=== PATIENT | male | born 1985 | race African-American/Black ===

== ENCOUNTER 2017-11-12 13:32 | Inpatient (IN) | payer OTHER ==
[2017-11-12] MEDS ORDERED: fentaNYL CITRATE 250 MCG/5 ML VIAL ONE (16:25)
[2017-11-12] MEDS ORDERED: ROCURONIUM BROMIDE 50 MG/5 ML VIAL ONE ×2 (16:25→17:17)
[2017-11-12] MEDS ORDERED: LIDOCAINE HCL/PF 2% SDV 5ML VIAL ONE (16:26)
[2017-11-12] MEDS ORDERED: MIDAZOLAM HCL 2 MG/2 ML SINGLE DOSE VIAL ONE ×2 (16:26)
[2017-11-12] MEDS ORDERED: PROPOFOL 20 ML ONE ×2 (16:26)
[2017-11-12] MEDS ORDERED: BUPIVACAINE HCL/PF 0.5% (5MG/ML) 10 ML VIAL ONE (16:32)
[2017-11-12] MEDS ORDERED: ceFAZolin SODIUM 1 GM VIAL IVPB ONE (17:05)
[2017-11-12] MEDS ORDERED: ceFAZolin SODIUM 1 GM VIAL ONE (17:07)
[2017-11-12] MEDS ORDERED: BUPIVACAINE HCL/PF 0.5% (5MG/ML) 10 ML VIAL IJ ONE (17:39)
[2017-11-12] MEDS ORDERED: DEXAMETHASONE SOD PHOSPHATE 4 MG/1 ML VIAL ONE (18:15)
[2017-11-12] MEDS ORDERED: GLYCOPYRROLATE 0.2 MG/1 ML VIAL ONE (18:28)
[2017-11-12] MEDS ORDERED: NEOSTIGMINE METHYLSULFATE 0.5 MG/ML - 10 ML MDV ONE (18:28)
[2017-11-12] MEDS ORDERED: ONDANSETRON 4 MG/2 ML VIAL IVPUSH PRN (18:33)
--- NOTE | 2017-11-12 18:45 | OP ---
Operative Note - Note: Operative Date: 11/12/17 Pre-Operative Diagnosis: Morbid Obesity Operation: Laparoscopic Vertical Sleeve Gastrectomy. Wedge biopsy of left lobe of liver. Diagnostic Laparoscopy Findings: Greater curve sleeve gastrectomy performed with #[address] Wedge biopsy performed on enlarged left lobe of liver Post-Operative Diagnosis: Same as Pre-op (Hepatomegaly) Surgeon: Tony Mesa Warehouse Examiner: Jose C Clancy Anesthesia: General Specimens Removed: Greater curve of stomach. Wedge biopsy left lobe of liver Estimated Blood Loss (mls): 30 Operative Report Dictated: Yes
--- NOTE | 2017-11-12 18:49 | SURG ---
Surgery Hospital Housekeeper Note Hospital Housekeeper: Jose C Clancy PA-C Date of Service: 11/12/17 Diagnosis: Morbid obesity due to excess calories Procedure: Laproscopic sleeve gastrectomy and liver biopsy I was present for the entirety of the operative procedure. For further detail, please refer to operative report.
[2017-11-12] MEDS ORDERED: PROMETHAZINE HCL 25 MG/1 ML VIAL IVPUSH PRN (18:52)
[2017-11-12] MEDS ORDERED: ACETAMINOPHEN 1000 MG/100 ML VIAL (NON FORMULARY) IVPB ONE (18:52)
[2017-11-12] MEDS ORDERED: ACETAMINOPHEN INJECTION 100 ML IVPB ONE (18:52)
[2017-11-12] MEDS ORDERED: PROMETHAZINE HCL 25 MG/1 ML VIAL ONE (18:53)
[2017-11-12] MEDS ORDERED: LACTATED RINGERS SOLUTION 1,000 ML IV SCH (19:00)
[2017-11-12] MEDS ORDERED: LABETALOL HCL 5 MG/1 ML (100MG/20 ML VIAL) IVPUSH ONE (19:15)
[2017-11-12] MEDS ORDERED: METOCLOPRAMIDE HCL INJECTION 10 MG/2 ML VIAL ONE (19:16)
[2017-11-12] MEDS: METOCLOPRAMIDE HCL INJECTION 10 MG/2 ML VIAL IVPUSH SCH (19:25)
[2017-11-12 19:57] LABS: HEMATOCRIT 39.3 % (35.4-49); HEMOGLOBIN 12.7 GM/dL (11.7-16.9); MCH 26.4 pg (25.7-33.7); MCHC 32.4 g/dl (32.0-35.9); MEAN CELL VOLUME 81.6 fl (80-96); MEAN PLT VOLUME 8.2 fl (7.5-11.1); PLATELET COUNT 315 K/MM3 (134-434); RBC 4.82 M/mm3 (4.00-5.60); RDW 13.2 % (11.9-15.9); WHITE BLOOD COUNT 11.5 K/mm3 (4.0-10.0)
[2017-11-12] MEDS ORDERED: hydrALAZINE HCL 20 MG/ML VIAL ONE (20:09)
[2017-11-12] MEDS ORDERED: hydrALAZINE HCL 20 MG/ML VIAL IVPUSH ONE ×2 (20:17→21:36)
[2017-11-12 20:18] LABS: ALBUMIN 3.7 g/dl (3.4-5.0); ALK PHOS 86 U/L (45-117); ANION GAP 9 (8-16); BILIRUBIN,TOTAL 0.5 mg/dL (0.2-1.0); BLOOD UREA NITROGEN 13 mg/dL (7-18); CALCIUM 8.4 mg/dL (8.5-10.1); CHLORIDE 105 mmol/L (98-107); CO2 27 mmol/L (21-32); GLUCOSE,RANDOM 153 mg/dL (74-106); POTASSIUM 3.7 mmol/L (3.5-5.1); SGOT/AST 52 U/L (15-37); SGPT/ALT 73 U/L (12-78); SODIUM 141 mmol/L (136-145); TOT PROT 7.6 g/dl (6.4-8.2)
[2017-11-12] MEDS: SODIUM CHLORIDE 1,000 ML IV SCH (21:00)
[2017-11-12] MEDS: ENOXAPARIN NA (PORCINE) 40 MG/0.4 ML DISP.SYRIN SQ SCH (22:36)
[2017-11-12] MEDS: FAMOTIDINE 20 MG/50 ML IVPB 20 MG/50 ML MG IVPB SCH (22:36)
[2017-11-13] MEDS: METOCLOPRAMIDE HCL INJECTION 10 MG/2 ML VIAL IVPUSH SCH ×4 (01:09→17:54)
[2017-11-13] MEDS ORDERED: LABETALOL HCL 5 MG/1 ML (100MG/20 ML VIAL) IVPUSH ONE (01:15)
[2017-11-13 07:46] LABS: HEMATOCRIT 40.5 % (35.4-49); HEMOGLOBIN 13.6 GM/dL (11.7-16.9); MCH 27.4 pg (25.7-33.7); MCHC 33.7 g/dl (32.0-35.9); MEAN CELL VOLUME 81.1 fl (80-96); MEAN PLT VOLUME 8.6 fl (7.5-11.1); PLATELET COUNT 355 K/MM3 (134-434); RBC 4.99 M/mm3 (4.00-5.60); RDW 13.2 % (11.9-15.9); WHITE BLOOD COUNT 10.3 K/mm3 (4.0-10.0)
[2017-11-13 07:57] LABS: ALK PHOS 90 U/L (45-117); ANION GAP 9 (8-16); BILIRUBIN,TOTAL 0.6 mg/dL (0.2-1.0); BLOOD UREA NITROGEN 13 mg/dL (7-18); CALCIUM 9.2 mg/dL (8.5-10.1); CHLORIDE 101 mmol/L (98-107); CO2 26 mmol/L (21-32); GLUCOSE,RANDOM 128 mg/dL (74-106); POTASSIUM 4.2 mmol/L (3.5-5.1); SGOT/AST 53 U/L (15-37); SGPT/ALT 78 U/L (12-78); SODIUM 136 mmol/L (136-145); TOT PROT 8.4 g/dl (6.4-8.2)
[2017-11-13] MEDS: FAMOTIDINE 20 MG/50 ML IVPB 20 MG/50 ML MG IVPB SCH ×2 (09:20→21:58)
[2017-11-13] MEDS: ENOXAPARIN NA (PORCINE) 40 MG/0.4 ML DISP.SYRIN SQ SCH ×2 (09:20→21:58)
--- NOTE | 2017-11-13 11:11 | OP ---
DATE OF OPERATION: 11/12/2017 PREOPERATIVE DIAGNOSIS: Morbid obesity. POSTOPERATIVE DIAGNOSIS: 1. Morbid obesity. 2. Hepatomegaly. PROCEDURE PERFORMED: 1. Laparoscopic vertical sleeve gastrectomy. 2. Wedge biopsy of the left lobe of the liver. 3. Diagnostic laparoscopy. OPERATING SURGEON: Tony Mesa MD CERTIFIED RETINAL ANGIOGRAPHER: OSWALDO Bravo ANESTHESIA: General. EXPECTED BLOOD LOSS: 30 mL. OPERATIVE PROCEDURE: The patient was brought into the operating room, placed on the OR table in the supine position. All precautions were taken initially including padding for the back and the feet, and Venodyne boots were placed on both lower extremities. At that point, the abdomen was prepped and draped in the usual manner. A Veress needle was placed in the left upper quadrant, and a pneumoperitoneum was established. A No. 12 bladeless trocar was placed in the left upper quadrant. Through that trocar, a laparoscopic camera was placed. Under direct vision, a No. 15 bladeless trocar was placed in the midline in a supraumbilical position followed by a No. 5 bladeless trocar below the right costal margin, and No. 5 bladeless trocar below the left costal margin. A Yennifer Liver Retractor was then placed in the epigastrium to retract the left lobe of the liver. The left lobe was noted to be extremely enlarged, and it was decided that a biopsy would be performed on the undersurface of the liver. Using the LigaSure device, a wedge triangular shape was dissected off of the edge of the left lobe and sent off the field as specimen to Pathology. The parenchyma of the liver, any bleeding was easily controlled with the LigaSure. At this juncture, Anesthesia placed the patient at 20-degree reverse Trendelenburg position. The pylorus was noted on the distal stomach and 6 cm were measured proximally from there. Here, the operating surgeon lifted the stomach toward the anterior abdominal wall as the tiler's assistant surgeon retracted the gastrocolic ligament inferiorly. The LigaSure was then used to dissect the gastrocolic ligament and the short gastric vessels off the greater curve of the stomach. This continued in a superior and vertical direction until the final short gastric vessel between the superior pole, spleen, and proximal fundus was divided. At this juncture, Anesthesia advanced a No. 40 bougie along the lesser curve where it was held by the operating surgeon. Using the bougie as a guide, a series of komal was performed, the first two being black-load komal, 6 cm in length, along the bougie. This was followed by a series of purple-load komal also 6 cm in length and also along the bougie until the final staple was fired in the left upper quadrant, and the greater curve was now completely detached from the lesser curve. It should be noted that prior to firing staple, both the anterior and posterior joseph were checked that they were equal, and in the area of the esophagogastric junction, approximately 1 to 1.5 cm serosa remained on the anterior and posterior surfaces of the stomach. At this juncture, saline was placed around the staple line, and Anesthesia inflated the Bougie, which showed the entire lesser curve was distended. No signs of obstruction and no signs leaks were noted. At this juncture, the greater curve was removed with a No. 15 trocar site and handed off the field as specimen to Pathology. Under direct vision, the No. 15 trocar site was closed with endo-closure device to prevent internal hernia event bleeding. Under direct vision, all trocars removed and the pneumoperitoneum released. All trocar sites then received 0.25% Marcaine, were closed with 4-0 Biosyn in subcuticular fashion. Dressings were applied. Patient awoke from anesthesia and transferred out of the operating room to the recovery room in stable condition. Brad [id number]
--- NOTE | 2017-11-13 11:55 | PN ---
Progress Note, Physician Chief Complaint: POD #1 S/P SLEVE GASTRECTOMY AWAKE ALERT DENIES SEVERE PAIN NO FEVERS URINATED TODAY HAS NOT PASSED GAS - Current Medication List Current Medications: Active Medications Enoxaparin Sodium (Lovenox -) 40 mg SQ BID [facility] Last Admin: 11/13/17 09:20 Dose: 40 mg Fentanyl (Sublimaze Injection -) 50 mcg IVPUSH [id number] PRN PRN Reason: PAIN-PACU ORDER X 4 DOSES ONLY Last Admin: 11/12/17 20:05 Dose: 50 mcg Famotidine/Sodium Chloride (Pepcid 20 Mg Premixed Ivpb -) 20 mg in 50 mls @ 100 mls/hr IVPB BID [facility] Last Admin: 11/13/17 09:20 Dose: 100 mls/hr Sodium Chloride (Normal Saline -) 1,000 mls @ 150 mls/hr IV ASDIR [facility] Last Admin: 11/12/17 21:00 Dose: 0 mls Lactated Ringer's (Lactated Ringers Solution) 1,000 mls @ 75 mls/hr IV ASDIR [facility] Last Admin: 11/12/17 22:34 Dose: Not Given Metoclopramide HCl (Reglan Injection -) 10 mg IVPUSH Q6H [facility] Last Admin: 11/13/17 05:49 Dose: 10 mg Ondansetron HCl (Zofran Injection) 4 mg IVPUSH Q4H PRN PRN Reason: NAUSEA AND/OR VOMITING Oxycodone HCl (Roxicodone -) 5 mg PO Q4H PRN PRN Reason: PAIN LEVEL 1-5 Promethazine HCl (Phenergan Injection -) 12.5 mg IVPUSH Q6H PRN PRN Reason: NAUSEA-FOR RESCUE AFTER 15 MIN Last Admin: 11/12/17 18:56 Dose: 12.5 mg - Objective Vital Signs: Vital Signs Temperature 97.9 F 11/13/17 10:00 Pulse Rate 99 H 11/13/17 10:00 Respiratory Rate 18 11/13/17 10:00 Blood Pressure 141/89 11/13/17 10:00 O2 Sat by Pulse Oximetry (%) 95 11/13/17 09:00 Constitutional: Yes: No Distress Eyes: Yes: WNL HENT: Yes: WNL Neck: Yes: WNL Cardiovascular: Yes: WNL Respiratory: Yes: WNL Gastrointestinal: Yes: WNL, Tenderness Genitourinary: Yes: WNL Musculoskeletal: Yes: WNL Extremities: Yes: WNL Edema: No Peripheral Pulses WNL: Yes Integumentary: Yes: WNL Wound/Incision: Yes: Clean/Dry Neurological: Yes: WNL ...Motor Strength: WNL Psychiatric: Yes: WNL Labs: CBC, BMP 11/13/17 06:00 11/13/17 06:00 Assessment/Plan MONITOR LABS OOB TO CHAIR START BARIATRIC STAGE [address] BONNER DVT PROPHYLAXIS
[2017-11-13] MEDS: SODIUM CHLORIDE 1,000 ML IV SCH (13:04)
--- NOTE | 2017-11-13 14:59 | PN ---
Progress Note (short form) - Note Progress Note: POD#1 Afebrile; P-82-99 BP-140/90 now (was 180-200 systolic during the evening, trated with Hydralazine , labetolol) Pt tolerating PO clear liquids- 2-3 oz TID plus sips of water Abd- incisions clean, dry WBC-10.3 (slightly decreased) H/H-13.6/40.5 (no change) UGI_ no leak, no obstruction contrast flows freely into SB P- Begin clear liquids- 2 oz PO TID OOB-ambulate Cont DVT prophylaxis (Lovenox, SCD's) Cont Incentive Spirometer
[2017-11-13] MEDS ORDERED: amLODIPine BESYLATE 5 MG TABLET (FP) PO ONE (15:15)
[2017-11-13] MEDS: SODIUM CHLORIDE 0.45% 1,000 ML IV SCH (17:39)
--- NOTE | 2017-11-13 20:21 | PN ---
Progress Note, Physician Chief Complaint: Pt. has hypertension before surgery that went up after surgery in the PACU and was treated with labetalol and hydralazine. Lower for a while today but now back up. - Current Medication List Current Medications: Active Medications Enoxaparin Sodium (Lovenox -) 40 mg SQ BID [facility] Last Admin: 11/13/17 09:20 Dose: 40 mg Fentanyl (Sublimaze Injection -) 50 mcg IVPUSH [id number] PRN PRN Reason: PAIN-PACU ORDER X 4 DOSES ONLY Last Admin: 11/12/17 20:05 Dose: 50 mcg Famotidine/Sodium Chloride (Pepcid 20 Mg Premixed Ivpb -) 20 mg in 50 mls @ 100 mls/hr IVPB BID [facility] Last Admin: 11/13/17 09:20 Dose: 100 mls/hr Sodium Chloride (1/2 Normal Saline) 1,000 mls @ 42 mls/hr IV ASDIR [facility] Last Admin: 11/13/17 17:39 Dose: 42 mls/hr Metoclopramide HCl (Reglan Injection -) 10 mg IVPUSH Q6H [facility] Last Admin: 11/13/17 17:54 Dose: 10 mg Ondansetron HCl (Zofran Injection) 4 mg IVPUSH Q4H PRN PRN Reason: NAUSEA AND/OR VOMITING Oxycodone HCl (Roxicodone -) 5 mg PO Q4H PRN PRN Reason: PAIN LEVEL 1-5 Promethazine HCl (Phenergan Injection -) 12.5 mg IVPUSH Q6H PRN PRN Reason: NAUSEA-FOR RESCUE AFTER 15 MIN Last Admin: 11/12/17 18:56 Dose: 12.5 mg - Objective Vital Signs: Vital Signs Temperature 99.6 F 11/13/17 17:00 Pulse Rate 110 H 11/13/17 17:00 Respiratory Rate 20 11/13/17 17:00 Blood Pressure 191/82 11/13/17 17:00 O2 Sat by Pulse Oximetry (%) 95 11/13/17 09:00 Constitutional: Yes: Well Nourished, No Distress, Calm Neurological: Yes: WNL, Alert, Oriented Labs: CBC, BMP 11/13/17 06:00 11/13/17 06:00 Assessment/Plan POD#1 s/p Laproscopic Gastric Sleeve under GA. Hypertensive. Needs primary care to start on antihypertensives until BP is better controlled with weight loss.
[2017-11-13] MEDS: oxyCODONE HCL 5 MG TABLET PO PRN (22:07)
[2017-11-14] MEDS: METOCLOPRAMIDE HCL INJECTION 10 MG/2 ML VIAL IVPUSH SCH ×4 (00:47→17:52)
[2017-11-14] MEDS: oxyCODONE HCL 5 MG TABLET PO PRN ×3 (03:54→21:49)
[2017-11-14] MEDS: ENOXAPARIN NA (PORCINE) 40 MG/0.4 ML DISP.SYRIN SQ SCH ×2 (09:23→21:47)
[2017-11-14] MEDS: FAMOTIDINE 20 MG/50 ML IVPB 20 MG/50 ML MG IVPB SCH (09:24)
[2017-11-14] MEDS: HYDROCHLOROTHIAZIDE 12.5 MG CAPSULE (FP) PO SCH (09:24)
[2017-11-14] MEDS: amLODIPine BESYLATE 10 MG TABLET (FP) PO SCH (09:24)
--- NOTE | 2017-11-14 10:35 | PN ---
Progress Note, Physician Chief Complaint: AWAKE ALERDENIES CHEST PAIN OR SOB BP STILL ELEVATED - Current Medication List Current Medications: Active Medications Amlodipine Besylate (Norvasc -) 10 mg PO DAILY [facility] Last Admin: 11/14/17 09:24 Dose: 10 mg Enoxaparin Sodium (Lovenox -) 40 mg SQ BID [facility] Last Admin: 11/14/17 09:23 Dose: 40 mg Fentanyl (Sublimaze Injection -) 50 mcg IVPUSH [id number] PRN PRN Reason: PAIN-PACU ORDER X 4 DOSES ONLY Last Admin: 11/12/17 20:05 Dose: 50 mcg Hydrochlorothiazide (Hctz -) 12.5 mg PO DAILY [facility] Last Admin: 11/14/17 09:24 Dose: 12.5 mg Famotidine/Sodium Chloride (Pepcid 20 Mg Premixed Ivpb -) 20 mg in 50 mls @ 100 mls/hr IVPB BID [facility] Last Admin: 11/14/17 09:24 Dose: 100 mls/hr Sodium Chloride (1/2 Normal Saline) 1,000 mls @ 42 mls/hr IV ASDIR [facility] Last Admin: 11/13/17 17:39 Dose: 42 mls/hr Metoclopramide HCl (Reglan Injection -) 10 mg IVPUSH Q6H [facility] Last Admin: 11/14/17 06:20 Dose: 10 mg Ondansetron HCl (Zofran Injection) 4 mg IVPUSH Q4H PRN PRN Reason: NAUSEA AND/OR VOMITING Oxycodone HCl (Roxicodone -) 5 mg PO Q4H PRN PRN Reason: PAIN LEVEL 1-5 Last Admin: 11/14/17 03:54 Dose: 5 mg Promethazine HCl (Phenergan Injection -) 12.5 mg IVPUSH Q6H PRN PRN Reason: NAUSEA-FOR RESCUE AFTER 15 MIN Last Admin: 11/12/17 18:56 Dose: 12.5 mg - Objective Vital Signs: Vital Signs Temperature 99 F 11/14/17 05:00 Pulse Rate 106 H 11/13/17 22:00 Respiratory Rate 20 11/14/17 09:00 Blood Pressure 158/104 11/14/17 09:00 O2 Sat by Pulse Oximetry (%) 95 11/13/17 21:00 Constitutional: Yes: No Distress Eyes: Yes: WNL HENT: Yes: WNL Neck: Yes: WNL Cardiovascular: Yes: WNL Respiratory: Yes: WNL Gastrointestinal: Yes: Tenderness Genitourinary: Yes: WNL Musculoskeletal: Yes: WNL Extremities: Yes: WNL Edema: No Peripheral Pulses WNL: Yes Integumentary: Yes: WNL Wound/Incision: Yes: Clean/Dry Neurological: Yes: WNL ...Motor Strength: WNL Psychiatric: Yes: WNL Labs: CBC, BMP 11/13/17 06:00 11/13/17 06:00 Problem List - Problems (2) Hypertension Code(s): I10 - ESSENTIAL (PRIMARY) HYPERTENSION Assessment/Plan STARTED AMLODIPINE 10MG DAILY HCTZ 12.5MG DAILY MONITOR UNTIL THE AFTERNOON USE BARIATRIC BP CUFF PASSING GAS NO FEVERS VOIDING URINE NO RETENTION IF BP IMPROVED CAN GO HOME TODAY IF BP BETTER
--- NOTE | 2017-11-14 12:57 | PN ---
Progress Note (short form) - Note Progress Note: POD#2 Afebrile BP-140-170/88-104 P-98-108 Pt doing well Tolerating PO clear liquids- 3 oz PO TID No N/V Ambulating well using incentive spirometer P/E- all trocar sites clean, dry P- PO clear liquids- 3 OZ PO TID Cont DVT prophylaxis Cont Lovenox, SCD's May be D/C if BP improved
[2017-11-14] MEDS: SODIUM CHLORIDE 0.45% 1,000 ML IV SCH (15:52)
[2017-11-14] MEDS: metoPROLOL SUCCINATE 25 MG TAB.SR.24H (FP) PO SCH ×2 (16:47→21:48)
[2017-11-14] MEDS: RANITIDINE HCL 150 MG TABLET (FP) PO SCH (21:48)
[2017-11-15 06:17] VITALS: PULSE 100; TEMP 98.8
[2017-11-15 09:02] VITALS: BP 150/68
[2017-11-15] MEDS: HYDROCHLOROTHIAZIDE 12.5 MG CAPSULE (FP) PO SCH (09:16)
[2017-11-15] MEDS: ENOXAPARIN NA (PORCINE) 40 MG/0.4 ML DISP.SYRIN SQ SCH (09:16)
[2017-11-15] MEDS: amLODIPine BESYLATE 10 MG TABLET (FP) PO SCH (09:16)
[2017-11-15] MEDS: RANITIDINE HCL 150 MG TABLET (FP) PO SCH (09:16)
[2017-11-15] MEDS: metoPROLOL SUCCINATE 25 MG TAB.SR.24H (FP) PO SCH (09:16)
--- NOTE | 2017-11-15 11:09 | PN ---
Progress Note, Physician Chief Complaint: patient seen and examined feeling better wants to go home cardiology consulted for elevated BP and tachycardia - Current Medication List Current Medications: Active Medications Amlodipine Besylate (Norvasc -) 10 mg PO DAILY [facility] Last Admin: 11/15/17 09:16 Dose: 10 mg Enoxaparin Sodium (Lovenox -) 40 mg SQ BID [facility] Last Admin: 11/15/17 09:16 Dose: 40 mg Fentanyl (Sublimaze Injection -) 50 mcg IVPUSH [id number] PRN PRN Reason: PAIN-PACU ORDER X 4 DOSES ONLY Last Admin: 11/12/17 20:05 Dose: 50 mcg Hydrochlorothiazide (Hctz -) 12.5 mg PO DAILY [facility] Last Admin: 11/15/17 09:16 Dose: 12.5 mg Sodium Chloride (1/2 Normal Saline) 1,000 mls @ 42 mls/hr IV ASDIR [facility] Last Admin: 11/14/17 15:52 Dose: 42 mls/hr Metoprolol Succinate (Toprol Xl -) 25 mg PO BID [facility] Last Admin: 11/15/17 09:16 Dose: 25 mg Ondansetron HCl (Zofran Injection) 4 mg IVPUSH Q4H PRN PRN Reason: NAUSEA AND/OR VOMITING Oxycodone HCl (Roxicodone -) 5 mg PO Q4H PRN PRN Reason: PAIN LEVEL 1-5 Last Admin: 11/14/17 21:49 Dose: 5 mg Promethazine HCl (Phenergan Injection -) 12.5 mg IVPUSH Q6H PRN PRN Reason: NAUSEA-FOR RESCUE AFTER 15 MIN Last Admin: 11/12/17 18:56 Dose: 12.5 mg Ranitidine HCl (Zantac -) 150 mg PO BID [facility] Last Admin: 11/15/17 09:16 Dose: 150 mg - Objective Vital Signs: Vital Signs Temperature 98.8 F 11/15/17 06:00 Pulse Rate 100 H 11/15/17 09:01 Respiratory Rate 18 11/15/17 08:00 Blood Pressure 150/68 11/15/17 09:01 O2 Sat by Pulse Oximetry (%) 96 11/15/17 08:00 Constitutional: Yes: Calm Cardiovascular: Yes: Regular Rate and Rhythm, S1, S2 Respiratory: Yes: CTA Bilaterally Gastrointestinal: Yes: Normal Bowel Sounds, Soft, Other (3 bandages) Edema: No Neurological: Yes: Alert, Oriented Labs: CBC, BMP 11/13/17 06:00 11/13/17 06:00 Problem List - Problems (1) Hypertension Assessment/Plan: norvasc metoprolol bid and hctz cardiology consulted Code(s): I10 - ESSENTIAL (PRIMARY) HYPERTENSION (2) S/P gastrectomy Assessment/Plan: on clear liquid diet surgery on board
--- NOTE | 2017-11-15 12:08 | CON.CARD ---
Consult Consult Specialty:: Cardiology Referred by:: Dr. Lewis Reason for Consultation:: Hypertension, nonspecific ST abnormality on EKG - History of Present Illness Chief Complaint: high blood pressure, s/p sleeve gastrectomy History of Present Illness: Patient had sleeve gastrectomy on 11/12, postoperatively had elevated BP as high as 200/105 and was tachycardic. Also noted to have nonspecific EKG changes on EKG done today. Patient is feeling well. Denies chest pain, dyspnea, or other complaint. He says he has minimal post operative pain. No history of HTN but per patient has had higher BP at some clinic visits in the past, was not on medications prior. Has been started during this admission on metoprolol, HCTZ and amlodipine with improvement in BP. - History Source History Provided By: Patient Limitations to Obtaining History: No Limitations - Past Medical History Cardio/Vascular: No: AFIB, Aneurysm, Aortic Insufficiency, Aortic Stenosis, CAD , CHF, Deep Vein Thrombosis, HTN, Hyperlipdemia, [place], Mitral Insufficiency, Mitral Stenosis, Murmur, Pulmonary Hypertension, Other - Past Surgical History Past Surgical History: Yes: Bariatric Surgery - Alcohol/Substance Use Hx Alcohol Use: No (rare) - Smoking History Smoking history: Never smoked Aproximately how many cigarettes per day: 0 Home Medications - Allergies Allergies/Adverse Reactions: Allergies Allergy/AdvReac Type Severity Reaction Status Date / Time egg yolk [Egg Yolk] Allergy Mild Hives Verified 11/10/17 14:06 No Known Drug Allergies Allergy Mild Hives Verified 11/10/17 14:06 CITRUS Allergy Mild TONGUE Uncoded 11/10/17 14:06 SORES WALNUTS Allergy Uncoded 11/10/17 14:06 - Home Medications Home Medications: Ambulatory Orders Famotidine [Pepcid] 20 mg PO BID #60 tablet 11/12/17 Oxycodone HCl/Acetaminophen [Percocet 5-325 mg Tablet] 1 tab PO Q6H PRN #20 tablet MDD 4 11/12/17 Review of Systems - Review of Systems Constitutional: denies: No Symptoms, Chills, Diaphoresis, Fever, Lethargy, Loss of Appetite, Malaise, Night Sweats, Unintentional Wgt. Loss, Weakness, Other Eyes: denies: No Symptoms, Blind Spots, Blurred Vision, Double Vision, Eye Pain , Floaters, Photophobia, Recent Change in Vision, Other HENT: denies: No Symptoms, Difficult Swallowing, Ear Discharge, Ear Pain, Epistaxis, Gingival Bleeding, Hearing Loss, Mouth Swelling, Nasal Congestion, Ocular Prosthesis, Throat Pain, Toothache, Ringing in Ears, Other Neck: denies: No Symptoms, Decreased ROM, Lumps, Pain on Movement, Stiffness, Swollen Glands, Tenderness, Other Cardiovascular: denies: No Symptoms, Chest Pain, Edema, Palpitations, Shortness of Breath, Other Respiratory: denies: No Symptoms, Cough, Exercise Intolerance, Hemoptysis, Orthopnea, PND, Snoring, SOB, SOB on Exertion, Wheezing, Other Gastrointestinal: reports: Abdominal Pain (mild, post surgery) Genitourinary: denies: No Symptoms, Burning, Discharge, Dysuria, Flank Pain, Frequency, Hematuria, Incontinence, Lesions, Menses, Pain, Testicular Mass, Testicular Pain, Testicular Swelling, Urgency, Vaginal Bleeding, Other Musculoskeletal: denies: No Symptoms, Back Pain, Crepitus, Decreased ROM, Extremity Pain, Joint Pain, Joint Swelling, Muscle Pain, Muscle Cramps, Muscle Weakness, Other Integumentary: denies: No Symptoms, Blister, Bruising, Change in Color, Eczema, Erythema, Incision, Lesions, Lump, Pallor, Pruritis, Rash, Wound, Other Neurological: denies: No Symptoms, Change in LOC, Change in Speech, Confusion, Dizziness, Headache, Incoordination, Numbness, Parasthesia, Pre-Existing Deficit , Seizure, Syncope, Tremors, Unsteady Gait, Weakness, Other Hematology/Lymphatic: denies: No Symptoms, Easily Bruised, Excessive Bleeding, Swollen Glands, Other Vital Signs: Vital Signs Temperature 98.8 F 11/15/17 06:00 Pulse Rate 100 H 11/15/17 09:01 Respiratory Rate 18 11/15/17 08:00 Blood Pressure 150/68 11/15/17 09:01 O2 Sat by Pulse Oximetry (%) 96 11/15/17 08:00 Constitutional: Yes: Well Nourished, No Distress, Calm Eyes: Yes: WNL, Conjunctiva Clear, EOM Intact HENT: Yes: WNL, Atraumatic, Normocephalic Neck: Yes: WNL, Supple, Trachea Midline Respiratory: Yes: WNL, Regular, CTA Bilaterally Gastrointestinal: Yes: WNL, Normal Bowel Sounds Cardiovascular: Yes: WNL, Regular Rate and Rhythm Heart Sounds: Yes: S1, S2 Musculoskeletal: Yes: WNL Extremities: Yes: WNL Edema: No - Other Data Labs, Other Data: CBC, BMP 11/13/17 06:00 11/13/17 06:00 11/14/17 Sinus rhythm with sinus arrhythmia, nonspecific ST changes, no ischemic changes. Stable compared to prior EKG from 08/26/17 Problem List - Problems (1) Hypertension Assessment/Plan: Improving with current medications started in the last two days Continue metoprolol, amlodipine and HCTZ at current doses Follow up as an outpatient for continued BP monitoring Code(s): I10 - ESSENTIAL (PRIMARY) HYPERTENSION (2) EKG abnormalities Assessment/Plan: Stable compared to preop EKG from 08/2017 Patient is asymptomatic No further work up at this point Code(s): R94.31 - ABNORMAL ELECTROCARDIOGRAM [ECG] [EKG]
[2017-11-15 12:11] VITALS: BMI 58.1
--- NOTE | 2017-11-15 13:19 | EKG ---
Test Reason : Blood Pressure : / mmHG Vent. Rate : 088 BPM Atrial Rate : 088 BPM P-R Int : 160 ms QRS Dur : 078 ms QT Int : 350 ms P-R-T Axes : 070 015 -03 degrees QTc Int : 423 ms NORMAL SINUS RHYTHM WITH SINUS ARRHYTHMIA NONSPECIFIC ST AND T WAVE ABNORMALITY ABNORMAL ECG WHEN COMPARED WITH ECG OF 26-AUG-2017 08:42, NO SIGNIFICANT CHANGE WAS FOUND Confirmed by DREW GROSS MD ([id number]) on 11/15/2017 1:19:19 PM Referred By: Tony Mesa Confirmed By:DREW GROSS MD
--- NOTE | 2017-11-15 14:09 | DS ---
Physical Examination Vital Signs: Vital Signs Temperature 98.8 F 11/15/17 06:00 Pulse Rate 100 H 11/15/17 09:01 Respiratory Rate 18 11/15/17 08:00 Blood Pressure 150/68 11/15/17 09:01 O2 Sat by Pulse Oximetry (%) 96 11/15/17 08:00 Constitutional: Yes: No Distress Eyes: Yes: WNL HENT: Yes: WNL Neck: Yes: WNL Cardiovascular: Yes: WNL Respiratory: Yes: Edwin-Duran Gastrointestinal: Yes: WNL Musculoskeletal: Yes: Muscle Weakness Extremities: Yes: WNL Edema: No Peripheral Pulses WNL: Yes Integumentary: Yes: WNL Wound/Incision: Yes: Clean/Dry Neurological: Yes: WNL ...Motor Strength: WNL Psychiatric: Yes: WNL Labs: CBC, BMP 11/13/17 06:00 11/13/17 06:00 Discharge Summary Reason For Visit: MORBID OBESITY Current Active Problems EKG abnormalities (Acute) Hypertension (Acute) S/P gastrectomy (Acute) S/P gastrectomy (Acute) Hospital Course: SLEEVE GASTRECTOMY, MALIGNANT HTN TREATED, Condition: Good - Instructions Diet, Activity, Other Instructions: PO clear liquids- 3 oz PO 4-5 times per day May have 1 cup of water/ice chips Q2H May shower beginning 11/15/2017 No lifting over 30 pounds for 3 weeks F/U with Dr Mesa on 11/18/[address] ALEXANDER THIS WEEK FOR BP CHECK Disposition: HOME - Home Medications Comprehensive Discharge Medication List: Ambulatory Orders Famotidine [Pepcid] 20 mg PO BID #60 tablet 11/12/17 Oxycodone HCl/Acetaminophen [Percocet 5-325 mg Tablet] 1 tab PO Q6H PRN #20 tablet MDD 4 11/12/17 Amlodipine Besylate [Norvasc -] 10 mg PO DAILY #30 tablet 11/15/17 Amlodipine Besylate [Norvasc -] 10 mg PO DAILY #30 tablet 11/15/17 Hydrochlorothiazide [Hctz -] 12.5 mg PO DAILY #30 cap 11/15/17 Hydrochlorothiazide [Hctz -] 12.5 mg PO DAILY #30 cap 11/15/17 Metoprolol Succinate [Toprol XL -] 25 mg PO BID #60 tab.sr.24h 11/15/17 Metoprolol Succinate [Toprol XL -] 25 mg PO BID #60 tab.sr.24h 11/15/17 Ranitidine [Zantac -] 150 mg PO BID #60 tablet 11/15/17
== END 2017-11-15 14:00 | disposition home or self-care (01) | DRG 621 ==
LOC: JSAMEDAYSX 13:32 → EDSTATUS 14:00 → J4W 21:20
PROVIDERS: ADMIT Surgery; ATTEND Surgery
PROC: 0WJP4ZZ Inspection of Gastrointestinal Tract, Percutaneous Endoscopic Approach (ICD-10-PCS; 2017-11-12)
PROC: 0DB64Z3 Excision of Stomach, Percutaneous Endoscopic Approach, Vertical (ICD-10-PCS; principal; 2017-11-12 15:00)
PROC: 0FB24ZX Excision of Left Lobe Liver, Percutaneous Endoscopic Approach, Diagnostic (ICD-10-PCS; 2017-11-12 15:00)
DX: E66.01 Morbid (severe) obesity due to excess calories (principal); Z68.43 Body mass index [BMI] 50.0-59.9, adult; R16.0 Hepatomegaly, not elsewhere classified; I10 Essential (primary) hypertension; R00.0 Tachycardia, unspecified; R94.31 Abnormal electrocardiogram [ECG] [EKG]
CPT/HCPCS: 36415; 74241-TC-FY; 80053; 85027; 88305-TC; 93005; 93010; 94760; J0131; J7030

== ENCOUNTER 2021-07-01 08:34 | Emergency (ER) | payer OTHER ==
[2021-07-01 08:41] VITALS: BP 148/82; PULSE 97; TEMP 99.8; BMI 50.2
[2021-07-01] MEDS ORDERED: IBUPROFEN 600 MG TABLET (FP) PO ONE ×2 (08:47→08:50)
== END 2021-07-01 10:02 | disposition home or self-care (01) ==
LOC: FER 08:34
DX: S46.911A Strain of unspecified muscle, fascia and tendon at shoulder and upper arm level, right arm, initial encounter (principal); X50.0XXA Overexertion from strenuous movement or load, initial encounter
CPT/HCPCS: 73030-TC-RT-FY; 99283-25